=== PATIENT | male | born 1945 | race Caucasian/White ===

== ENCOUNTER → 2016-11-27 | Day surgery (SDC) | payer MEDICARE, OTHER ==
[~2016-11-27] MED LIST: ASPI1TAB69 PO; ATOR20TA15 PO; GLIP5TAB8 PO; LACTATED RINGER'S 1,000 ML BAG IV ONE; LEVO.15 PO; LISI10TA3 PO; PROPOFOL 100 MG/10 ML INJ IV ONE; PROSTATE MED; SYMB160A INH; UMEC1INH INH; [UNRECOGNIZED DRUG - OTHER] PO
== END | disposition home or self-care (01) ==
LOC: ESDC 10:02
PROVIDERS: ATTEND Internal Medicine Gastroenterology
DX: K21.9 Gastro-esophageal reflux disease without esophagitis (principal); R13.10 Dysphagia, unspecified; K20.9 Esophagitis, unspecified; K29.80 Duodenitis without bleeding; D12.5 Benign neoplasm of sigmoid colon; R94.8 Abnormal results of function studies of other organs and systems; K57.90 Diverticulosis of intestine, part unspecified, without perforation or abscess without bleeding
CPT/HCPCS: 00740; 00810; 43239; 45385; 88305; J3010; J7120

== ENCOUNTER 2016-12-16 17:18 | Emergency (ER) | payer MEDICARE, OTHER ==
[~2016-12-16] VITALS: Ht 170.2 cm; Wt 84.2 kg
[~2016-12-16 17:18] MED LIST changes: -ATOR20TA15 PO; -GLIP5TAB8 PO; -LACTATED RINGER'S 1,000 ML BAG IV ONE; -LISI10TA3 PO; -PROPOFOL 100 MG/10 ML INJ IV ONE; -PROSTATE MED
[2016-12-16 17:25] VITALS: BP 198/93; PULSE 113; RESP 18; TEMP 97.8; O2SAT 95
== END 2016-12-16 18:57 | disposition left against medical advice (07) ==
LOC: PHED 17:18
DX: R33.9 Retention of urine, unspecified (principal)
CPT/HCPCS: 99281

== ENCOUNTER 2017-01-05 12:49 | Observation (INO) | payer MEDICARE, OTHER ==
[~2017-01-05] VITALS: Ht 170.2 cm; Wt 78.8 kg
[2017-01-05] VITALS (7 sets, daily range): BP systolic 107–146; BP diastolic 65–81; PULSE 62–103; RESP 15–20; TEMP 97.8; O2SAT 96–98
[2017-01-05] MEDS ORDERED: LISI10TA3 PO (13:01)
[2017-01-05] MEDS ORDERED: GLIP5TAB8 PO (13:02)
[2017-01-05] MEDS ORDERED: PROSTATE MED (13:02)
[2017-01-05] MEDS ORDERED: ATOR20TA15 PO (13:02)
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
[2017-01-05] MEDS ORDERED: SODIUM CHLORIDE 0.9% FLUSH 10 ML FLUSH IVF PRN (13:15)
[2017-01-05 13:29] LABS: AUTOMATED NEUTROPHIL # 4.5 TH/MM3 (1.8-7.7); BASOPHIL # 0.1 TH/MM3 (0-0.2); BASOPHIL % 1.2 % (0.0-2.0); EOSINOPHIL # 0.4 TH/MM3 (0-0.4); EOSINOPHIL % 4.8 % (0.0-4.0); HEMATOCRIT 41.1 % (39.0-51.0); HEMO FLAGS DIFF FINAL; LYMPHOCYTE # 2.2 TH/MM3 (1.0-4.8); MEAN CELL VOLUME 86.8 FL (80.0-100.0); MEAN CORPUSCULAR HEMOGLOBIN 28.8 PG (27.0-34.0); MEAN CORPUSCULAR HGB CONC 33.1 % (32.0-36.0); MONO % 6.6 % (0.0-8.0); NEUT % 58.4 % (16.0-70.0); PLATELET COUNT 273 TH/MM3 (150-450); RED BLOOD COUNT 4.74 MIL/MM3 (4.50-5.90); RED CELL DISTRIBUTION WIDTH 12.9 % (11.6-17.2); WHITE BLOOD COUNT 7.7 TH/MM3 (4.0-11.0)
[2017-01-05 13:38] LABS: CHLORIDE 109 MEQ/L (98-107); SODIUM (NA) 146 MEQ/L (136-145)
[2017-01-05 13:42] LABS: ANION GAP 12 MEQ/L (5-15); BICARBONATE 24.9 MEQ/L (21.0-32.0); BLOOD UREA NITROGEN 17 MG/DL (7-18); MAGNESIUM 2.2 MG/DL (1.5-2.5)
[2017-01-05 13:45] LABS: ALT (GPT) 21 U/L (12-78); APTT (PATIENT) 28.5 SEC (24.3-30.1); AST (GOT) 12 U/L (15-37); GLOMERULAR FILTRATION RATE 76 ML/MIN (>89); PROTHROMBIN TIME - PATIENT 10.7 SEC (9.8-11.6)
[2017-01-05 13:46] LABS: TOTAL BILIRUBIN ADULT 0.7 MG/DL (0.2-1.0)
[2017-01-05 13:48] LABS: ALKALINE PHOSPHATASE 130 U/L (45-117)
--- NOTE | 2017-01-05 14:05 | RADHPO ---
EXAM DATE/TIME: 01/05/2017 13:48 [facility] COMPARISON: CHEST SINGLE AP, September 24, 2015, 14:57. INDICATIONS : Onset of chest pain today MEDICAL HISTORY : Carcinoma, lung. Chronic obstructive pulmonary disease. SURGICAL HISTORY : None. ENCOUNTER: Initial ACUITY: 1 day PAIN SCORE: 10/10 LOCATION: Bilateral chest FINDINGS: A single view of the chest demonstrates the lungs to be symmetrically aerated without evidence of mas s, infiltrate or effusion. The cardiomediastinal contours are unremarkable. Osseous structures are intact. CONCLUSION: No acute disease. Riki Reeder MD FACR on January 05, 2017 at 14:03 Board Certified Radiologist. This report was verified electronically.
[2017-01-05] MEDS ORDERED: IOHEXOL 350 MG/ML 10 ML VIAL (for RAD DIAG) IV ONE (14:50)
--- NOTE | 2017-01-05 15:09 | RADHPO ---
EXAM DATE/TIME: 01/05/2017 14:24 [facility] COMPARISON: No previous studies available for comparison. INDICATIONS : Short of breath. IV CONTRAST: 74 cc Omnipaque 350 (iohexol) IV RADIATION DOSE: 12.80 CTDIvol (mGy) MEDICAL HISTORY : Cerebrovascular disease. Cardiovascular disease Chronic obstructive pulmonary disease.Hep C, diabetic SURGICAL HISTORY : None. ENCOUNTER: Initial ACUITY: 1 day PAIN SCALE: 5/10 LOCATION: chest TECHNIQUE: Volumetric scanning of the chest was performed using a pulmonary embolism protocol MIP images were re constructed. Using automated exposure control and adjustment of the mA and/or kV according to patien t size, radiation dose was kept as low as reasonably achievable to obtain optimal diagnostic quality images. FINDINGS: No filling defects identified to suggest pulmonary embolic disease. A spiculated mass is seen in the left upper lobe measuring 2.7 x 1.8 cm, increased in size from prior study and characteristic of a pr imary lung malignancy. There is a 2.3 cm presumed hamartoma in the lingula unchanged from prior CTs d ating back to 2014. There is mild emphysema. No pleural or pericardial effusion. No acute findings in the upper abdomen. There are borderline to mildly enlarged mediastinal lymph nodes at the AP window which could represen t early jeni metastatic disease. CONCLUSION: 1. Increasing size of spiculated left upper lobe lung mass 2.7 cm in diameter characteristic of a ana chirag lung malignancy. Borderline enlarged AP window lymph nodes most worrisome for early jeni metast atic disease. 2. Negative for pulmonary embolus. Jcarlos Gabriel MD on January 05, 2017 at 15:00 Board Certified Radiologist. This report was verified electronically.
[2017-01-05] MEDS ORDERED: DEXTROSE 50% IN WATER 50 ML VIAL(D50) IV PUSH PRN (16:00)
[2017-01-05] MEDS: INSULIN ASPART SUPPLEMENTAL SCALE SQ SCH ×2 (16:00→21:00)
[2017-01-05] MEDS ORDERED: GLUCAGON 1 MG/ML VIAL OTHER PRN (16:00)
[2017-01-05] MEDS ORDERED: NALOXONE HCL 0.4 MG/ML AMP IV PRN (16:00)
[2017-01-05] MEDS ORDERED: SODIUM CHLORIDE 0.9% FLUSH 10 ML FLUSH IV FLUSH PRN (16:00)
[2017-01-05] MEDS ORDERED: ONDANSETRON HCL 4 MG/2 ML VIAL IVP PRN (16:00)
[2017-01-05] MEDS ORDERED: ACETAMINOPHEN 325 MG TAB PO PRN (16:00)
[2017-01-05] MEDS: ASPIRIN 81 MG CHEW TAB CHEW SCH (16:03)
[2017-01-05] MEDS: ENOXAPARIN SODIUM 40 MG/0.4 ML SYRINGE SQ SCH (16:10)
[2017-01-05] MEDS: LISINOPRIL 10 MG TAB PO SCH (22:56)
[2017-01-05] MEDS: ATORVASTATIN 20 MG TAB PO SCH (22:57)
[2017-01-05] MEDS: SODIUM CHLORIDE 0.9% FLUSH 10 ML FLUSH IV FLUSH SCH (22:57)
[2017-01-06] VITALS (7 sets, daily range): BP systolic 113–127; BP diastolic 67–82; PULSE 64–74; RESP 18–20; TEMP 96.5–98.7; O2SAT 93–97
[2017-01-06] MEDS: INSULIN ASPART SUPPLEMENTAL SCALE SQ SCH ×4 (06:21→20:43)
[2017-01-06 07:19] LABS: AUTOMATED NEUTROPHIL # 3.9 TH/MM3 (1.8-7.7); BASOPHIL # 0.1 TH/MM3 (0-0.2); BASOPHIL % 0.8 % (0.0-2.0); EOSINOPHIL # 0.4 TH/MM3 (0-0.4); EOSINOPHIL % 5.5 % (0.0-4.0); HEMATOCRIT 39.2 % (39.0-51.0); HEMO FLAGS DIFF FINAL; LYMPH % 27.2 % (9.0-44.0); LYMPHOCYTE # 1.9 TH/MM3 (1.0-4.8); MEAN CELL VOLUME 87.1 FL (80.0-100.0); MEAN CORPUSCULAR HEMOGLOBIN 29.3 PG (27.0-34.0); MEAN CORPUSCULAR HGB CONC 33.6 % (32.0-36.0); MONO % 7.7 % (0.0-8.0); NEUT % 58.8 % (16.0-70.0); PLATELET COUNT 245 TH/MM3 (150-450); RED CELL DISTRIBUTION WIDTH 13.3 % (11.6-17.2); WHITE BLOOD COUNT 6.8 TH/MM3 (4.0-11.0)
[2017-01-06 07:26] LABS: POTASSIUM 4.2 MEQ/L (3.5-5.1)
[2017-01-06 07:33] LABS: BICARBONATE 25.4 MEQ/L (21.0-32.0)
[2017-01-06] MEDS: LISINOPRIL 10 MG TAB PO SCH ×2 (09:00→20:44)
[2017-01-06] MEDS: SODIUM CHLORIDE 0.9% FLUSH 10 ML FLUSH IV FLUSH SCH ×2 (09:00→20:45)
[2017-01-06] MEDS: ASPIRIN 81 MG CHEW TAB CHEW SCH (09:00)
[2017-01-06] MEDS ORDERED: [UNRECOGNIZED DRUG - OTHER] PO SCH (09:00)
[2017-01-06] MEDS: LEVOTHYROXINE SODIUM 150 MCG TAB PO SCH (09:00)
[2017-01-06] MEDS ORDERED: REGADENOSON INJ 0.4 MG/5 ML SYR IV ONE (09:23)
--- NOTE | 2017-01-06 10:10 | MB ---
cc: ELICEO RUIZ M.D. DATE OF CONSULTATION: 01/05/2017 REASON FOR CONSULTATION Angina. HISTORY OF PRESENT ILLNESS Mr. Jones is a 71-year-old gentleman with history of coronary artery disease. Apparently he has a PTCA done at [facility] in 2000. He was diagnosed with a lung mass. For the past couple of months he was having biopsy at three of them. Then was scheduled for possible lobectomy in the left lung that was cancelled. Apparently he is scheduled for some kind of lung procedure this Friday. 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 He felt some chest pain and shortness of breath, he felt like somebody was sitting on his chest. He decided to come to the emergency room where he was evaluated and admitted. The chart was reviewed. The patient was a evaluated. ALLERGIES BEES AND PENICILLIN. SOCIAL HISTORY Gentleman refers quitting smoking 2 years ago. Negative for drinking. FAMILY HISTORY Noncontributory to his current medical condition. MEDICATIONS 1. He is on atorvastatin 20 mg a day. 2. Glipizide 5 mg a day. 3. Lisinopril 10 mg twice a day. 4. Synthroid. 5. Aspirin. 6. Apparently he is on some experimental drugs for the lung mass. 7. Lovenox subcu was added during hospitalization. REVIEW OF SYSTEMS Currently he refers no chest pain or shortness of breath. No fever. PHYSICAL EXAMINATION GENERAL: Alert, fully oriented. VITAL SIGNS: Blood pressure 142/78, pulse 69, respiratory rate 18. LUNGS: Ventilated. CARDIOVASCULAR: S1-S2, no gallop or murmur. ABDOMEN: Soft. No mass. No bruit. EXTREMITIES: No edema. ELECTROCARDIOGRAM Shows sinus rhythm. No acute ST and T-wave changes. LABORATORY DATA Hemoglobin is 13.6, white blood cell 7.7, potassium 4.0, creatinine 0.98, troponin less than 0.02, INR 1.0. ASSESSMENT AND RECOMMENDATIONS Mr. Jones describes what appeared to be typical angina. But he refers in the past he was having shortness of breath. He has a lung mass. I am not sure the shortness of breath is due to the lung mass or coronary artery disease. He is currently scheduled for biopsy. Apparently previous biopsy was indeterminate and there was no malignant cell, that is based on the patient account. The patient is followed by Dr. Lamb. Troponin is negative. There is no acute ST and T-wave changes. At that point I am going to order a nuclear stress study. Based on the results further decision will be taken. Case discussed with the patient. Eliceo Ruiz MD HS/TLL /6:57 PM /10:00 AM
--- NOTE | 2017-01-06 10:28 | RADHPO ---
EXAM DATE/TIME: 01/06/2017 09:33 [facility] COMPARISON: MYOCARDIAL PERF PHARM SPECT, GATED W/EF, February 24, 2014, 11:11. INDICATIONS : Substernal chest pain radiating to arm and neck with dyspnea. Angina. Coronary artery disease. DOSE: 25.4 mCi Tc99m Myoview at stress. 8.5 mCi Tc99m Myoview at rest. 0.4 mg Lexiscan STRESS SYMPTOMS: Dyspnea and chest pain. EJECTION FRACTION: 70% MEDICAL HISTORY : Hepatitis C. Hypertension. Chronic obstructive pulmonary disease. Diabetes and thyroid cancer. SURGICAL HISTORY : Appendectomy. Thyroidectomy. Coronary artery stent. ENCOUNTER: Initial ACUITY: 2 days PAIN SCALE: 6/10 LOCATION: Substernal chest TECHNIQUE: The patient underwent pharmacologic stress with infusion of prescribed dose. Continuous ECG tracing was monitored during stress. Gated SPECT imaging was performed after stress and conventional SPECT i maging was performed at rest. The examination was performed on a SPECT/CT scanner, both attenuation and non-corrected datasets were reviewed. FINDINGS: DISTRIBUTION: The maximum perfused segment at stress is in the anterior wall. PERFUSION STUDY: The pattern of perfusion at stress is within normal limits. GATED STUDY: There is intact wall motion and thickening without hypokinetic or dyskinetic segments. CONCLUSION: 1. No reversible perfusion defect to suggest stress-induced myocardial ischemia identified. RISK CATEGORY: Low (<1% Annual Mortality Rate) Jama Reeder MD on January 06, 2017 at 10:25 Board Certified Radiologist. This report was verified electronically.
--- NOTE | 2017-01-06 11:22 | EKG ---
Date Performed: 01/05/2017 Time Performed: 12:41:10 PTAGE: 71 years EKG: Sinus rhythm . Possible left atrial abnormality rSr'(V1) - probable normal variant Borderline ECG PREVIOUS TRACING : 07/08/2016 10.32 DOCTOR: Tomas Schofield Interpretating Date/Time 01/06/2017 11:20:33
--- NOTE | 2017-01-06 11:26 | RADHPO ---
EXAM DATE/TIME: 01/06/2017 10:12 [facility] COMPARISON: No previous studies available for comparison. INDICATIONS : Bilateral leg pain, high D-dimer. MEDICAL HISTORY : Hypercholesterolemia. Hypothyroidism. Myocardial infarction. Stroke. Hypertension. COPD. A-fib. CAD. Kidney stones. Arthritis. Diabetes. Hepatitis C. Thyroid cancer. SURGICAL HISTORY : Appendectomy.Thyroidectomy. Cardiac cath. Vasectomy. ENCOUNTER: Initial ACUITY: 1 day PAIN SCORE: 3/10 LOCATION: Bilateral legs. TECHNIQUE: Venous ultrasound of the left and right leg was performed from the inguinal ligament to the proximal calf. Real-time, color Doppler and spectral tracing, compression and augmentation techniques were us ed. FINDINGS: RIGHT LEG: There is normal compressibility of the deep venous system from the inguinal region to the proximal ca lf. No echogenic clot is seen in the lumen of the common femoral, femoral, popliteal, and posterior tibial veins. There is a normal response of the venous system to proximal and distal augmentation an d respiration. LEFT LEG: There is normal compressibility of the deep venous system from the inguinal region to the proximal ca lf. No echogenic clot is seen in the lumen of the common femoral, femoral, popliteal, and posterior tibial veins. There is a normal response of the venous system to proximal and distal augmentation an d respiration. CONCLUSION: Normal examination. Paul Cooper MD on January 06, 2017 at 11:24 Board Certified Radiologist. This report was verified electronically.
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
[2017-01-06] MEDS: ENOXAPARIN SODIUM 40 MG/0.4 ML SYRINGE SQ SCH (16:45)
[2017-01-06] MEDS: NITROGLYCERIN 2% OINT 1 GM PACKET TOP SCH (16:45)
--- NOTE | 2017-01-06 17:42 | PD.CARD.PN ---
Subjective Subjective Remarks No chest pain. Feels ok. Objective Medications Current Medications Medications (Trade) Dose Ordered Sig/Elliot Route Start Time Stop Time Status Last Admin (NS Flush) 2 ml UNSCH PRN IVF 01/05/17 13:15 (Aspirin Chew) 162 mg DAILY CHEW 01/05/17 15:45 01/06/17 09:00 (NS Flush) 2 ml UNSCH PRN IV FLUSH 01/05/17 16:00 (NS Flush) 2 ml BID IV FLUSH 01/05/17 21:00 01/05/17 22:57 (Tylenol) 650 mg Q4H PRN PO 01/05/17 16:00 (Zofran Inj) 4 mg Q6H PRN IVP 01/05/17 16:00 (Lovenox Inj) 40 mg Q24H SQ 01/05/17 16:00 01/06/17 16:45 (Narcan Inj) 0.4 mg UNSCH PRN IV 01/05/17 16:00 (Nitroglycerin 2% Oint) 1 inch Q6HR TOP 01/06/17 18:00 (Lipitor) 20 mg HS PO 01/05/17 21:00 01/05/17 22:57 (Synthroid) 150 mcg DAILY PO 01/06/17 09:00 01/06/17 09:00 (Prinivil) 10 mg BID PO 01/05/17 21:00 01/06/17 09:00 (D50w (Vial) Inj) 25 ml UNSCH PRN IV PUSH 01/05/17 16:00 (Glucagon Inj) 1 mg UNSCH PRN OTHER 01/05/17 16:00 Vital Signs / I&O Vital Signs Date Time Temp Pulse Resp B/P Pulse Ox O2 Delivery O2 Flow Rate FiO2 01/06/17 12:00 97.6 64 18 113/73 96 01/06/17 08:00 96.5 68 20 127/82 93 01/06/17 04:00 98.7 71 20 120/67 96 01/06/17 00:00 98.6 64 20 123/69 97 01/05/17 22:00 62 01/05/17 20:00 97.8 69 20 142/80 96 01/05/17 20:00 97.8 69 20 142/80 96 I/O 4/11/2201/05/17 01/05/17 01/06/17 01/06/17 01/06/17 07:00 15:00 23:00 07:00 15:00 23:00 Intake Total 720 ml 60 ml 360 ml Output Total 350 ml Balance 720 ml 60 ml 10 ml Intake Oral 720 ml 60 ml 360 ml Output Urine Total 350 ml # Voids 2 2 # Bowel Movements 0 0 0 Physical Exam GENERAL: Well-nourished, well-developed patient. SKIN: Warm and dry. HEAD: Normocephalic. EYES: No scleral icterus. No injection or drainage. NECK: Supple, trachea midline. No JVD or lymphadenopathy. CARDIOVASCULAR: Regular rate and rhythm without murmurs, gallops, or rubs. RESPIRATORY: Breath sounds equal bilaterally, diminished. No accessory muscle use. GASTROINTESTINAL: Abdomen soft, non-tender, nondistended. EXTREMITIES: No cyanosis, or edema. NEUROLOGICAL: Awake, alert, and oriented x 3. Non-focal. Laboratory Laboratory Tests Test 01/05/17 01/06/17 21:55 06:50 Troponin I LESS THAN 0.02 NG/ML White Blood Count 6.8 TH/MM3 Red Blood Count 4.50 MIL/MM3 Hemoglobin 13.2 GM/DL Hematocrit 39.2 % Mean Corpuscular Volume 87.1 FL Mean Corpuscular Hemoglobin 29.3 PG Mean Corpuscular Hemoglobin 33.6 % Concent Red Cell Distribution Width 13.3 % Platelet Count 245 TH/MM3 Mean Platelet Volume 8.7 FL Neutrophils (%) (Auto) 58.8 % Lymphocytes (%) (Auto) 27.2 % Monocytes (%) (Auto) 7.7 % Eosinophils (%) (Auto) 5.5 % Basophils (%) (Auto) 0.8 % Neutrophils # (Auto) 3.9 TH/MM3 Lymphocytes # (Auto) 1.9 TH/MM3 Monocytes # (Auto) 0.5 TH/MM3 Eosinophils # (Auto) 0.4 TH/MM3 Basophils # (Auto) 0.1 TH/MM3 CBC Comment DIFF FINAL Differential Comment Sodium Level 143 MEQ/L Potassium Level 4.2 MEQ/L Chloride Level 108 MEQ/L Carbon Dioxide Level 25.4 MEQ/L Anion Gap 10 MEQ/L Blood Urea Nitrogen 20 MG/DL Creatinine 0.78 MG/DL Estimat Glomerular Filtration 98 ML/MIN Rate Random Glucose 107 MG/DL Calcium Level 8.9 MG/DL Imaging Last Impressions Myocardial Perfusion Scan Nuc Med 01/06/17 0000 Signed Impressions: Service Date/Time: Friday, January 06, 2017 09:33 - CONCLUSION: 1. No reversible perfusion defect to suggest stress-induced myocardial ischemia identified. RISK CATEGORY: Low (<1%% Annual Mortality Rate) Jama Reeder MD Lower Extremity Ultrasound 01/06/17 0000 Signed Impressions: Service Date/Time: Friday, January 06, 2017 10:12 - CONCLUSION: Normal examination. Paul Cooper MD Chest X-Ray 01/05/17 1309 Signed Impressions: Service Date/Time: Thursday, January 05, 2017 13:48 - CONCLUSION: No acute disease. Riki Reeder MD FACR CT Angiography 01/05/17 0000 Signed Impressions: Service Date/Time: Thursday, January 05, 2017 14:24 - CONCLUSION: 1. Increasing size of spiculated left upper lobe lung mass 2.7 cm in diameter characteristic of a primary lung malignancy. Borderline enlarged AP window lymph nodes most worrisome for early jeni metastatic disease. 2. Negative for pulmonary embolus. Jcarlos Gabriel MD Assessment and Plan Problem List: (1) Chest pain Assessment and Plan: Negative nuclear stress, no chest pain today. Can be discharged from cardiac standpoint when cleared by managing team per my d/w Dr. Ruiz. Problem Qualifiers (1) Chest pain: Qualified Code: R07.9 - Chest pain, unspecified type Vanessa Rhodes [employer] Jan 06, 2017 17:42
[2017-01-06] MEDS: ATORVASTATIN 20 MG TAB PO SCH (20:44)
[2017-01-07] VITALS: BP 110/72; PULSE 68; RESP 18; TEMP 96.9; O2SAT 97
[2017-01-07 04:00] VITALS: BP 112/67; PULSE 78; RESP 18; TEMP 97.3; O2SAT 96
[2017-01-07] MEDS: INSULIN ASPART SUPPLEMENTAL SCALE SQ SCH ×2 (05:47→11:00)
[2017-01-07] MEDS: NITROGLYCERIN 2% OINT 1 GM PACKET TOP SCH ×3 (05:47→12:00)
[2017-01-07 07:23] LABS: AUTOMATED NEUTROPHIL # 4.4 TH/MM3 (1.8-7.7); BASOPHIL # 0.1 TH/MM3 (0-0.2); EOSINOPHIL # 0.2 TH/MM3 (0-0.4); EOSINOPHIL % 3.6 % (0.0-4.0); HEMATOCRIT 41.5 % (39.0-51.0); HEMO FLAGS DIFF FINAL; LYMPH % 23.7 % (9.0-44.0); LYMPHOCYTE # 1.6 TH/MM3 (1.0-4.8); MEAN CELL VOLUME 87.5 FL (80.0-100.0); MEAN CORPUSCULAR HGB CONC 33.2 % (32.0-36.0); MONO % 7.4 % (0.0-8.0); NEUT % 64.3 % (16.0-70.0); PLATELET COUNT 251 TH/MM3 (150-450); RED BLOOD COUNT 4.74 MIL/MM3 (4.50-5.90); RED CELL DISTRIBUTION WIDTH 12.9 % (11.6-17.2); WHITE BLOOD COUNT 6.8 TH/MM3 (4.0-11.0)
[2017-01-07 07:24] LABS: CHLORIDE 108 MEQ/L (98-107); POTASSIUM 4.2 MEQ/L (3.5-5.1); SODIUM (NA) 142 MEQ/L (136-145)
[2017-01-07 07:34] LABS: ANION GAP 9 MEQ/L (5-15); BICARBONATE 24.9 MEQ/L (21.0-32.0)
[2017-01-07 07:35] LABS: BLOOD UREA NITROGEN 19 MG/DL (7-18)
[2017-01-07 07:37] LABS: ALT (GPT) 20 U/L (12-78); AST (GOT) 10 U/L (15-37); GLOMERULAR FILTRATION RATE 105 ML/MIN (>89)
[2017-01-07 07:38] LABS: TOTAL BILIRUBIN ADULT 0.7 MG/DL (0.2-1.0)
[2017-01-07 07:40] LABS: ALKALINE PHOSPHATASE 125 U/L (45-117)
[2017-01-07 08:00] VITALS: BP 113/74; PULSE 71; RESP 19; TEMP 97.6; O2SAT 93
--- NOTE | 2017-01-07 08:39 | HHI.PR ---
Subjective History of Present Illness Patient have no chest pain stress test negative ok to DC Per Cardiology. Review of Systems Constitutional Constitutional Remarks All ROS Negative. Vitals/Results Intake & Output 01/06/17 01/06/17 01/07/17 15:00 23:00 07:00 Intake Total 360 ml 480 ml Output Total 350 ml 750 ml Balance 10 ml -270 ml Intake Oral 360 ml 480 ml Output Urine Total 350 ml 750 ml # Bowel Movements 0 0 Vital Signs Vital Signs Date Time Temp Pulse Resp B/P Pulse Ox O2 Delivery O2 Flow Rate FiO2 01/07/17 08:00 97.6 71 19 113/74 93 01/07/17 04:00 97.3 78 18 112/67 96 01/07/17 00:00 96.9 68 18 110/72 97 01/06/17 20:27 73 01/06/17 20:00 96.8 74 18 113/68 96 01/06/17 16:00 97.9 71 18 118/74 96 01/06/17 12:00 97.6 64 18 113/73 96 CBC/BMP: 01/07/17 0655 01/07/17 0655 Lab Results Laboratory Tests Test 01/07/17 06:55 White Blood Count 6.8 TH/MM3 Red Blood Count 4.74 MIL/MM3 Hemoglobin 13.8 GM/DL Hematocrit 41.5 % Mean Corpuscular Volume 87.5 FL Mean Corpuscular Hemoglobin 29.0 PG Mean Corpuscular Hemoglobin 33.2 % Concent Red Cell Distribution Width 12.9 % Platelet Count 251 TH/MM3 Mean Platelet Volume 9.0 FL Neutrophils (%) (Auto) 64.3 % Lymphocytes (%) (Auto) 23.7 % Monocytes (%) (Auto) 7.4 % Eosinophils (%) (Auto) 3.6 % Basophils (%) (Auto) 1.0 % Neutrophils # (Auto) 4.4 TH/MM3 Lymphocytes # (Auto) 1.6 TH/MM3 Monocytes # (Auto) 0.5 TH/MM3 Eosinophils # (Auto) 0.2 TH/MM3 Basophils # (Auto) 0.1 TH/MM3 CBC Comment DIFF FINAL Differential Comment Sodium Level 142 MEQ/L Potassium Level 4.2 MEQ/L Chloride Level 108 MEQ/L Carbon Dioxide Level 24.9 MEQ/L Anion Gap 9 MEQ/L Blood Urea Nitrogen 19 MG/DL Creatinine 0.74 MG/DL Estimat Glomerular Filtration 105 ML/MIN Rate Random Glucose 107 MG/DL Calcium Level 9.2 MG/DL Total Bilirubin 0.7 MG/DL Aspartate Amino Transf 10 U/L (AST/SGOT) Alanine Aminotransferase 20 U/L (ALT/SGPT) Alkaline Phosphatase 125 U/L Total Protein 6.9 GM/DL Albumin 3.4 GM/DL Physical Exam General General Appearance: Well Developed, Well Nourished, No Acute Distress, Comfortable Eyes Eye Exam: Pupils Equal, Pupils Reactive, Sclera White, Extraocular Movement Intact Throat Throat Exam: Oral Mucosa [place] & Moist, Oral Pharynx Normal Neck Neck Exam: Neck Supple, Trachea Midline Pulmonary Resp Exam: Clear Bilaterally, Breath Sounds Equal, No Distress Cardiology CV Exam: Regular, Normal Sinus Rhythm Gastrointestinal/Abdomen GI Exam: Soft, Non-Tender, Bowel Sounds Present Musculoskeletal MS Exam: Normal Tone Integumentary Skin Exam: Warm, Dry Extremeties Extremities Exam: No Edema Neurologic Neuro Exam: Alert, Awake, Oriented, Speech Clear, Moving All Extremities, No Focal Deficits VTE Prophylaxis VTE Prophylaxis Meds: Heparin PUD Prophylasis PUD Prophylaxis: Protonix Assessment/Plan Assessment/Plan ASSESSMENT AND PLAN This is a 71-year male who came to the ER diagnosed with a cough. 1. Chest pain. Rule out acute coronary syndrome. The patient had a history of coronary artery disease. Cardiac enzymes x 3, 0.02. The patient is on nitroglycerin, aspirin and Lovenox. Cardiology input noted stress test negative ok to DC Per Cardiology. 2. History of hyperlipidemia. Continue Lipitor 20 mg p.o. daily. 3. Diabetes mellitus. Insulin sliding scale. Check blood sugar closely. 4. History of hypertension. Continue home medications. 5. History of hypothyroidism. Continue with levothyroxine 150 mcg p.o. daily. 6. History of arthritis. Continue home medications. 7. History of anxiety and depression. 8. History of the thyroid cancer, status post total thyroidectomy. 9. History of hepatitis C. 10. DVT prophylaxis. Lovenox 40 mg subcutaneous. 11. GI prophylaxis. Protonix 40 mg p.o. daily. ok to DC Home today. f/u with PCP/ CARDIOLOGY 1 WEEK. CONDITION AT DISCHARGE GOOD. Activity as tolerated. Diet Cardiac. Medicine see discharge medicine list. Discussed Condition with: Patient Swapnil Hackett MD Jan 07, 2017 08:39
[2017-01-07 09:00] VITALS: PULSE 75
[2017-01-07] MEDS: ASPIRIN 81 MG CHEW TAB CHEW SCH (09:37)
[2017-01-07] MEDS: SODIUM CHLORIDE 0.9% FLUSH 10 ML FLUSH IV FLUSH SCH (09:37)
[2017-01-07] MEDS: LISINOPRIL 10 MG TAB PO SCH (09:37)
[2017-01-07] MEDS: LEVOTHYROXINE SODIUM 150 MCG TAB PO SCH (09:37)
[2017-01-07 12:00] VITALS: BP 110/76; PULSE 80; RESP 18; TEMP 97.5; O2SAT 95
== END 2017-01-07 15:12 | disposition home or self-care (01) ==
LOC: PHED 12:49 → PHEDA 15:44 → PH3A 17:21
PROVIDERS: ADMIT Family Medicine; ATTEND Family Medicine
DX: R07.9 Chest pain, unspecified (principal); I25.10 Atherosclerotic heart disease of native coronary artery without angina pectoris; M19.90 Unspecified osteoarthritis, unspecified site; E78.00 Pure hypercholesterolemia, unspecified; J44.9 Chronic obstructive pulmonary disease, unspecified; E11.9 Type 2 diabetes mellitus without complications; B19.20 Unspecified viral hepatitis C without hepatic coma; I10 Essential (primary) hypertension; I25.2 Old myocardial infarction; F43.10 Post-traumatic stress disorder, unspecified; F41.9 Anxiety disorder, unspecified; F32.9 Major depressive disorder, single episode, unspecified; E89.0 Postprocedural hypothyroidism; Z86.73 Personal history of transient ischemic attack (TIA), and cerebral infarction without residual deficits; Z92.3 Personal history of irradiation; Z91.030 Bee allergy status; Z88.0 Allergy status to penicillin; Z88.8 Allergy status to other drugs, medicaments and biological substances; Z91.018 Allergy to other foods; Z95.5 Presence of coronary angioplasty implant and graft; Z79.82 Long term (current) use of aspirin; F17.200 Nicotine dependence, unspecified, uncomplicated; E78.5 Hyperlipidemia, unspecified; Z85.850 Personal history of malignant neoplasm of thyroid
CPT/HCPCS: 71010; 71275; 78452; 80048; 80053; 82948; 83735; 84484; 85025; 85379; 85610; 85730; 93005; 93017; 93970; 99285; A9502; G0378; J1650; J1815; J2785; Q9967